=== PATIENT | female | born 1980 | race Caucasian/White ===

== ENCOUNTER → 2018-11-03 | Outpatient (CLI) | payer BC ==
--- NOTE | 2018-11-03 12:14 | XR ---
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 No acute fracture or dislocation IMPRESSION: First MTP joint arthropathy. No acute fracture.
== END | disposition home or self-care (01) ==
LOC: RADXRYALE 11:08
PROVIDERS: ATTEND Physician Assistant Medical
DX: M19.072 Primary osteoarthritis, left ankle and foot (principal)

== ENCOUNTER → 2022-03-20 | Outpatient (CLI) | payer BC ==
--- NOTE | 2022-03-20 08:35 | US ---
EXAMINATION TYPE: US abdomen complete DATE OF EXAM: 03/20/2022 COMPARISON: NONE CLINICAL HISTORY: R94.5, N92.1. Abnormal labs. No pain. TECHNIQUE: Multiple sonographic images of the abdomen are obtained. FINDINGS: EXAM MEASUREMENTS: Liver Length: 18.2 cm Gallbladder Wall: 0.2 cm CBD: 0.5 cm Spleen: 14.3 cm Right Kidney: 12.1 x 4.7 x 4.5 cm Left Kidney: 11.4 x 5.0 x 5.4 cm Pancreas: Tail obscured by overlying bowel gas Liver: Enlarged in size. Echogenic in appearance. Gallbladder: Mobile stone = 1.6 cm Evidence for sonographic Hall's sign: neg CBD: wnl Spleen: wnl Right Kidney: No hydronephrosis or masses seen Left Kidney: No hydronephrosis or masses seen Upper IVC: wnl Abd Aorta: No AAA visualized at this time IMPRESSION: 1. Hepatic steatosis. 2. Cholelithiasis
--- NOTE | 2022-03-20 08:37 | US ---
EXAMINATION TYPE: US pelvic complete DATE OF EXAM: 03/20/2022 COMPARISON: NONE CLINICAL HISTORY: R94.5, N92.1. Irregular menses. Patient states she has been on her period x 2.5 mo nths. TECHNIQUE: Transabdominal (TA). Transabdominal sonographic images of the pelvis were acquired. Patient declined transvaginal exam Date of LMP: Unknown, EXAM MEASUREMENTS: Uterus: 11.3 x 5.2 x 2.6 cm Endometrial Stripe: 0.2 cm Left Ovary: 3.5 x 2.3 x 2.6 cm 1. Uterus: Anteverted Enlarged in size. Heterogenous. 2. Endometrium: wnl 3. Right Ovary: Obscured by overlying bowel gas 4. Left Ovary: follicles seen 5. Bilateral Adnexa: no free fluid 6. Posterior cul-de-sac: no free fluid IMPRESSION: 1. No evidence for acute process. 2. Endometrium within normal limits for thickness.
== END | disposition home or self-care (01) ==
LOC: RADUSWWP 06:54
PROVIDERS: ATTEND Family Medicine
DX: R94.5 Abnormal results of liver function studies (principal); N92.1 Excessive and frequent menstruation with irregular cycle
CPT/HCPCS: 76700; 76856